=== PATIENT | male | born 1970 | race American Indian/Alaskan Native ===

== ENCOUNTER 2023-08-22 23:33 | Emergency (ER) | payer OTHER ==
[2023-08-23] MEDS ORDERED: Sodium Chloride 0.9% 1,000 ML IV ONE (00:04)
[2023-08-23] MEDS ORDERED: Lidocaine 2% with EPINEPHrine 1:200,000 20 ML SDV INJECT ONE (00:04)
[2023-08-23] MEDS ORDERED: fentaNYL 100 MCG/2 ML SDV IVPUSH ONE (00:05)
[2023-08-23 00:14] LABS: BASOPHILS PERCENT AUTO 0.5 % (0.0-1.0); EOSINOPHILS PERCENT AUTO 3.8 % (1.0-3.0); HEMATOCRIT 43.6 % (40.0-54.0); HEMOGLOBIN 15.3 g/dL (14.0-18.0); LYMPHOCYTES PERCENT AUTO 24.4 % (20.5-50.1); MEAN CORPUSCULAR HEMOGLOBIN 35.4 pg (27.0-34.0); MEAN CORPUSCULAR HGB CONC 35.1 g/dL (33.0-35.0); MEAN CORPUSCULAR VOLUME 100.9 fL (80-100); MONOCYTES PERCENT AUTO 8.7 % (2-8); NEUTROPHILS PERCENT AUTO 62.6 % (42.2-75.2); PLATELET COUNT,PLT 80 10^3/uL (150-450); RED BLOOD CELL COUNT 4.32 10^6/uL (4.6-6.2); WHITE BLOOD CELL COUNT,WBC 9.4 10^3/uL (5.0-10.0)
[2023-08-23 00:21] LABS: ALBUMIN 2.7 g/dL (3.4-5.0); ANION GAP 9.4 mEq/L (7-13); BILIRUBIN TOTAL 1.4 mg/dL (0.2-1.0); BUN/CREATININE RATIO 5.5 (No establ ref range); C-REACTIVE PROTEIN 0.64 ng/dL (<=0.30); CALCIUM 8.2 mg/dL (8.5-10.1); CREATININE 0.91 mg/dL (0.70-1.30); EST CRCL DRUG DOSING (CG) 70.24 mL/min; POTASSIUM,K 3.4 mmol/L (3.5-5.1); PROTEIN TOTAL,TP 8.3 g/dL (6.4-8.2)
[2023-08-23 00:23] LABS: A/G RATIO 0.48
[2023-08-23 00:24] LABS: LACTIC ACID 1.7 mmol/L (0.4-2.0)
[2023-08-23] MEDS ORDERED: Cephalexin 500 MG Cap PO ONE (01:06)
[2023-08-23 01:23] LABS: INR 1.2 (0.9-1.2); PROTHROMBIN TIME 11.9 SEC (9.0-12.0)
== END 2023-08-23 02:40 | disposition home or self-care (01) ==
LOC: DL.ED 23:33
DX: L03.116 Cellulitis of left lower limb (principal); D69.6 Thrombocytopenia, unspecified; D69.2 Other nonthrombocytopenic purpura; E80.6 Other disorders of bilirubin metabolism; I10 Essential (primary) hypertension; Z79.899 Other long term (current) drug therapy
CPT/HCPCS: 36415; 80053; 83605; 85025; 85610; 85730; 86140; 87040; 96361; 96374; 99284; A9270; J3010; J7030

== ENCOUNTER 2023-11-12 12:05 | Emergency (ER) | payer OTHER, BC ==
[2023-11-12 12:05] LABS: BASOPHILS PERCENT AUTO 0.5 % (0.0-1.0); EOSINOPHILS PERCENT AUTO 1.5 % (1.0-3.0); HEMATOCRIT 43.4 % (40.0-54.0); HEMOGLOBIN 15.3 g/dL (14.0-18.0); LYMPHOCYTES PERCENT AUTO 24.3 % (20.5-50.1); MEAN CORPUSCULAR HEMOGLOBIN 35.7 pg (27.0-34.0); MEAN CORPUSCULAR HGB CONC 35.3 g/dL (33.0-35.0); MEAN CORPUSCULAR VOLUME 101.2 fL (80-100); NEUTROPHILS PERCENT AUTO 62.7 % (42.2-75.2); PLATELET COUNT,PLT 76 10^3/uL (150-450); RED BLOOD CELL COUNT 4.29 10^6/uL (4.6-6.2); WHITE BLOOD CELL COUNT,WBC 6.6 10^3/uL (5.0-10.0)
[~2023-11-12 12:05] MED LIST: Acetaminophen 500 MG Tab PO ONE; Iopamidol 612 MG/ML 100 ML Bottle IVPUSH ONE; Ondansetron 4 MG/2 ML SDV IVPUSH ONE
[2023-11-12 12:42] LABS: ALBUMIN 2.9 g/dL (3.4-5.0); ANION GAP 13.7 mEq/L (7-13); BILIRUBIN TOTAL 1.6 mg/dL (0.2-1.0); BUN/CREATININE RATIO 6.1 (No establ ref range); CREATININE 0.82 mg/dL (0.70-1.30); EST CRCL DRUG DOSING (CG) 108.81 mL/min; POTASSIUM,K 3.7 mmol/L (3.5-5.1); PROTEIN TOTAL,TP 8.7 g/dL (6.4-8.2)
[2023-11-12 12:43] LABS: A/G RATIO 0.5
[2023-11-12] MEDS ORDERED: Ketorolac 30 MG/ML SDV IVPUSH ONE (13:19)
== END 2023-11-12 13:30 | disposition home or self-care (01) ==
LOC: DL.ED 12:05
DX: S22.31XA Fracture of one rib, right side, initial encounter for closed fracture (principal); I10 Essential (primary) hypertension; Z79.899 Other long term (current) drug therapy; V89.2XXA Person injured in unspecified motor-vehicle accident, traffic, initial encounter
CPT/HCPCS: 36415; 71260; 72125; 72128; 72131; 74177; 80053; 85025; 96374; 99285; A9270; J2405; Q9967

== ENCOUNTER 2024-07-12 17:30 | Emergency (ER) | payer BC ==
[2024-07-12 17:58] LABS: BASOPHILS PERCENT AUTO 0.2 % (0.0-1.0); EOSINOPHILS PERCENT AUTO 0.7 % (1.0-3.0); HEMOGLOBIN 12.2 g/dL (14.0-18.0); LYMPHOCYTES PERCENT AUTO 8.8 % (20.5-50.1); MEAN CORPUSCULAR HEMOGLOBIN 33.8 pg (27.0-34.0); MEAN CORPUSCULAR HGB CONC 34.9 g/dL (33.0-35.0); MONOCYTES PERCENT AUTO 7.9 % (2-8); NEUTROPHILS PERCENT AUTO 82.4 % (42.2-75.2); PLATELET COUNT,PLT 207 10^3/uL (150-450); RED BLOOD CELL COUNT 3.61 10^6/uL (4.6-6.2); WHITE BLOOD CELL COUNT,WBC 13.8 10^3/uL (5.0-10.0)
[2024-07-12 18:19] LABS: LACTIC ACID 1.4 mmol/L (0.4-2.0)
[2024-07-12 18:25] LABS: ANION GAP 9.1 mEq/L (7-13); BILIRUBIN TOTAL 2.1 mg/dL (0.2-1.0); BUN/CREATININE RATIO 13.7 (No establ ref range); C-REACTIVE PROTEIN 2.67 ng/dL (<=0.50); CALCIUM 8.1 mg/dL (8.5-10.1); CREATININE 0.95 mg/dL (0.70-1.30); EST CRCL DRUG DOSING (CG) 93.92 mL/min; POTASSIUM,K 5.1 mmol/L (3.5-5.1)
[2024-07-12 18:27] LABS: A/G RATIO 0.33
[2024-07-12] MEDS: Iopamidol 612 MG/ML 100 ML Bottle IVPUSH ONE (18:30)
[2024-07-12] MEDS: Sodium Chloride 0.9% 1,000 ML IV SCH ×2 (18:33→20:06)
[2024-07-12] MEDS: Piperacillin/Tazobactam 3.375 GM in Sodium Chloride 0.9% 100 ML IV ONE (18:33)
[2024-07-12] MEDS: Furosemide 40 MG/4 ML VIAL IVPUSH ONE (20:07)
[2024-07-12 22:41] LABS: ANION GAP 10.3 mEq/L (7-13); CALCIUM 7.8 mg/dL (8.5-10.1); CREATININE 1.08 mg/dL (0.70-1.30); EST CRCL DRUG DOSING (CG) 82.61 mL/min; POTASSIUM,K 4.3 mmol/L (3.5-5.1)
== END 2024-07-12 23:32 | disposition home or self-care (01) ==
LOC: DL.ED 17:30
DX: E87.1 Hypo-osmolality and hyponatremia (principal); I10 Essential (primary) hypertension; Z79.899 Other long term (current) drug therapy; Z86.16 Personal history of COVID-19
CPT/HCPCS: 36415; 74177; 80048; 80053; 83605; 83880; 85025; 86140; 87040; 93970; 96361; 96365; 96375; 99283; 99285; J1940; J2543; J3490; J7030; Q9967

== ENCOUNTER 2024-07-16 03:49 | Emergency (ER) | payer BC, OTHER ==
[2024-07-16] MEDS: Sodium Chloride 0.9% 10 ML Syringe FLUSH PRN (04:13)
[2024-07-16 04:21] LABS: BASOPHILS PERCENT AUTO 0.4 % (0.0-1.0); EOSINOPHILS PERCENT AUTO 2.1 % (1.0-3.0); HEMATOCRIT 32.1 % (40.0-54.0); HEMOGLOBIN 11.1 g/dL (14.0-18.0); LYMPHOCYTES PERCENT AUTO 16.1 % (20.5-50.1); MEAN CORPUSCULAR HEMOGLOBIN 33.6 pg (27.0-34.0); MEAN CORPUSCULAR HGB CONC 34.6 g/dL (33.0-35.0); MEAN CORPUSCULAR VOLUME 97.3 fL (80-100); MONOCYTES PERCENT AUTO 12.6 % (2-8); NEUTROPHILS PERCENT AUTO 68.8 % (42.2-75.2); PLATELET COUNT,PLT 150 10^3/uL (150-450); WHITE BLOOD CELL COUNT,WBC 9.6 10^3/uL (5.0-10.0)
[2024-07-16 04:44] LABS: ALBUMIN 1.9 g/dL (3.4-5.0); ANION GAP 7.3 mEq/L (7-13); BILIRUBIN TOTAL 1.2 mg/dL (0.2-1.0); BUN/CREATININE RATIO 12.5 (No establ ref range); CALCIUM 8.1 mg/dL (8.5-10.1); CREATININE 0.96 mg/dL (0.70-1.30); EST CRCL DRUG DOSING (CG) 91.88 mL/min; MAGNESIUM 1.9 mg/dL (1.8-2.4); POTASSIUM,K 4.3 mmol/L (3.5-5.1); PROTEIN TOTAL,TP 7.5 g/dL (6.4-8.2)
[2024-07-16 04:51] LABS: A/G RATIO 0.34
[2024-07-16 05:01] LABS: LACTIC ACID 1.5 mmol/L (0.4-2.0)
[2024-07-16] MEDS: Iopamidol 755 Mg/ML 100 ML Bottle IVPUSH ONE (05:13)
[2024-07-16] MEDS: Furosemide 40 MG/4 ML VIAL IV ONE ×2 (07:42→16:36)
[2024-07-16] MEDS: HYDROmorphone 1 MG/ML Syringe IVPUSH ONE ×2 (07:42→16:36)
[2024-07-16 09:31] LABS: APPEARANCE,URINE CLEAR (CLEAR); BILIRUBIN,URINE NEGATIVE (NEGATIVE); COLOR,URINE YELLOW (YELLOW); GLUCOSE,URINE NEGATIVE (NEGATIVE); KETONES,URINE NEGATIVE (NEGATIVE); LEUKOCYTE ESTERASE,URINE NEGATIVE (NEGATIVE); NITRITE,URINE NEGATIVE (NEGATIVE); OCCULT BLOOD,URINE TRACE-INTACT (NEGATIVE); PH,URINE 5.5 (5.0-9.0); PROTEIN,URINE NEGATIVE (NEGATIVE); UROBILINOGEN,URINE 0.2 mg/dL (0.2-1.0)
[2024-07-16 09:47] LABS: BACTERIA,URINE FEW /HPF (0-FEW/HPF); MUCUS,URINE FEW /LPF (NOT SEEN); WBC,URINE 0-5 /HPF (0-5/HPF)
[2024-07-16 09:48] LABS: EPITHELIAL CELLS,URINE RARE /HPF (NOT SEEN)
[2024-07-16] MEDS: Albumin Human 25 GM in Premix Bag 1 BAG IV ONE (16:40)
== END 2024-07-16 18:51 ==
LOC: DL.ED 03:49
DX: I85.00 Esophageal varices without bleeding (principal); K74.60 Unspecified cirrhosis of liver; K76.6 Portal hypertension; K80.20 Calculus of gallbladder without cholecystitis without obstruction; I10 Essential (primary) hypertension; E66.9 Obesity, unspecified; Z86.16 Personal history of COVID-19; Z79.899 Other long term (current) drug therapy; Z68.42 Body mass index [BMI] 45.0-49.9, adult
CPT/HCPCS: 36415; 74174; 80053; 81001; 83605; 83690; 83735; 83880; 84484; 85025; 85379; 96365; 96375; 96376; 99285; 99285-25; J1170; J1940; J3490; P9047; Q9967

== ENCOUNTER 2024-08-02 09:08 | Emergency (ER) | payer BC, OTHER ==
[2024-08-02] MEDS ORDERED: Sodium Chloride 0.9% 10 ML Syringe FLUSH PRN (09:46)
[2024-08-02 09:55] LABS: BASOPHILS PERCENT AUTO 0.1 % (0.0-1.0); EOSINOPHILS PERCENT AUTO 0.3 % (1.0-3.0); HEMATOCRIT 30.9 % (40.0-54.0); HEMOGLOBIN 10.5 g/dL (14.0-18.0); LYMPHOCYTES PERCENT AUTO 2.9 % (20.5-50.1); MEAN CORPUSCULAR HEMOGLOBIN 33.7 pg (27.0-34.0); MONOCYTES PERCENT AUTO 4.3 % (2-8); NEUTROPHILS PERCENT AUTO 92.4 % (42.2-75.2); PLATELET COUNT,PLT 109 10^3/uL (150-450); RED BLOOD CELL COUNT 3.12 10^6/uL (4.6-6.2)
[2024-08-02 10:11] LABS: LACTIC ACID 2.1 mmol/L (0.4-2.0)
[2024-08-02 10:12] LABS: ALANINE AMINOTRANSFERASE,ALT 24 U/L (16-63); ALBUMIN 2.4 g/dL (3.4-5.0); ALKALINE PHOSPHATASE 130 U/L (46-116); AMYLASE 96 U/L (25-115); ANION GAP 12.3 mEq/L (7-13); ASPARTATE AMNIOTRANSFERASE,AST 24 U/L (15-37); BILIRUBIN TOTAL 1.5 mg/dL (0.2-1.0); BLOOD UREA NITROGEN,BUN 15 mg/dL (7-18); BUN/CREATININE RATIO 11.2 (No establ ref range); CALCIUM 8.6 mg/dL (8.5-10.1); CARBON DIOXIDE,CO2 27 mmol/L (21-32); CHLORIDE,CL 97 mmol/L (98-107); CREATININE 1.34 mg/dL (0.70-1.30); GLUCOSE RANDOM 119 mg/dL (70-99); LIPASE 86 U/L (16-77); MAGNESIUM 1.6 mg/dL (1.8-2.4); POTASSIUM,K 4.3 mmol/L (3.5-5.1); PROTEIN TOTAL,TP 8.2 g/dL (6.4-8.2); SODIUM,NA 132 mmol/L (136-145)
[2024-08-02 10:13] LABS: A/G RATIO 0.41; ESTIMATED GFR 63 mL/min (>=60)
[2024-08-02] MEDS: Iopamidol 612 MG/ML 100 ML Bottle IVPUSH ONE (10:38)
[2024-08-02] MEDS: Magnesium Sulfate/Water 2 GM in Premix Bag 1 BAG IV ONE (10:40)
[2024-08-02] MEDS: Ketorolac 30 MG/ML SDV IVPUSH ONE (10:45)
[2024-08-02 10:58] LABS: INR 1.3 (0.9-1.2); PROTHROMBIN TIME 13.2 SEC (9.0-12.0); PTT,PARTIAL THROMBOPLSTIN TIME 26.7 SEC (22.0-34.0)
[2024-08-02 13:16] LABS: APPEARANCE,URINE CLEAR (CLEAR); BILIRUBIN,URINE NEGATIVE (NEGATIVE); COLOR,URINE AMBER (YELLOW); GLUCOSE,URINE NEGATIVE (NEGATIVE); KETONES,URINE NEGATIVE (NEGATIVE); LEUKOCYTE ESTERASE,URINE NEGATIVE (NEGATIVE); NITRITE,URINE NEGATIVE (NEGATIVE); OCCULT BLOOD,URINE LARGE (NEGATIVE); PH,URINE 5.5 (5.0-9.0); PROTEIN,URINE NEGATIVE (NEGATIVE)
[2024-08-02 13:29] LABS: BACTERIA,URINE FEW /HPF (0-FEW/HPF); EPITHELIAL CELLS,URINE MODERATE /HPF (NOT SEEN); RBC,URINE 20-30 /HPF (0-5); WBC,URINE 0-5 /HPF (0-5/HPF)
== END 2024-08-02 13:12 ==
LOC: DL.ED 09:08
DX: K70.31 Alcoholic cirrhosis of liver with ascites (principal); D72.829 Elevated white blood cell count, unspecified; I10 Essential (primary) hypertension; E66.9 Obesity, unspecified; Z79.899 Other long term (current) drug therapy
CPT/HCPCS: 36415; 74177; 80053; 81001; 82140; 82150; 83605; 83690; 83735; 84484; 85025; 85610; 85730; 96365; 96366; 96375; 99285; 99285-25; J1885; J3475; Q9967